=== PATIENT | male | born 1980 | race Caucasian/White ===

== ENCOUNTER 2017-07-26 19:42 | Emergency (ER) | payer OTHER ==
[~2017-07-26] VITALS: Ht 172.7 cm; Wt 150.6 kg
[2017-07-26 20:18] VITALS: Ht 172.7 cm; Wt 150.6 kg
[2017-07-26 22:18] LABS: BASOPHIL # 0.1 10^3/ul (0.0-0.1); BASOPHILS % 0.5 % (0.0-2.0); EOSINOPHILS # 0.4 10^3/ul (0.0-0.5); EOSINOPHILS % 3.6 % (0.0-7.0); HEMATOCRIT 44.4 % (42.0-52.0); HEMOGLOBIN 14.3 g/dl (14.0-18.0); LYMPHOCYTES # 3.4 10^3/ul (0.8-2.9); LYMPHOCYTES % 31.3 % (15.0-51.0); MEAN CORPUSCULAR HEMOGLOBIN 27.8 pg (29.0-33.0); MEAN CORPUSCULAR HGB CONC 32.2 g/dl (32.0-37.0); MEAN CORPUSCULAR VOLUME 86.2 fl (82.0-101.0); MEAN PLATELET VOLUME 10.8 fl (7.4-10.4); MONOCYTE # 0.7 10^3/ul (0.3-0.9); MONOCYTES % 6.3 % (0.0-11.0); NEUTROPHIL # 6.3 10^3/ul (1.6-7.5); PLATELET COUNT 363 10^3/UL (140-415); RED BLOOD COUNT 5.15 10^6/ul (4.70-6.10); RED CELL DISTRIBUTION WIDTH 13.7 % (11.5-14.5); WHITE BLOOD COUNT 10.9 10^3/ul (4.8-10.8)
[2017-07-26 22:54] LABS: ALBUMIN 3.9 g/dl (3.3-4.9); ALBUMIN/GLOBULIN RATIO 0.92; BILIRUBIN,INDIRECT 0.2 mg/dl (0-1.1); BILIRUBIN,TOTAL 0.2 mg/dl (0.2-1.3); CALCIUM 9.1 mg/dl (8.4-10.2); CREATININE 0.8 mg/dl (0.61-1.24); POTASSIUM 3.9 mmol/L (3.5-5.1); TOTAL PROTEIN 8.1 g/dl (6.1-8.1)
--- NOTE | 2017-07-26 23:07 | RADRPT ---
PROCEDURE: CT abdomen and pelvis without intravenous contrast. CLINICAL INDICATION: Pain. TECHNIQUE: CT of the abdomen/pelvis was performed utilizing axial images with reconstructions in s agittal and coronal planes. The administered radiation dose is CTDI 24mGy, DLP 1580 mGy-cm. One or m ore of the following dose reduction techniques were used: automated exposure control, adjustment of the mA and/or kV according to patient size and/or use of iterative reconstruction technique. DICOM images are available. COMPARISON: No pertinent prior examinations were submitted for comparison. FINDINGS: Visualized Chest: A calcified granuloma is noted in the left lower lobe. Abdomen: The spleen, pancreas, gallbladder,and adrenal glands are unremarkable. The liver is markedly, dif fusely decreased in attenuation, compatible with hepatic steatosis. The kidneys are without hydronephrosis. No definite urinary calculi are seen. There is a large ventral abdominal hernia which contains multiple loops of small bowel. There is no abnormal dilatation of the bowel. There is no evidence of bowel obstruction. Prior partial resectio n of the sigmoid colon is also noted. The appendix is not seen. No intra-abdominal free air is seen . There is no evidence of intra-abdominal adenopathy or free fluid. Pelvis: There is no evidence of pelvic adenopathy or free fluid. The prostate and bladder are unremarkable. Small right and moderate left fat containing inguinal hernias are noted. Osseous structures: Unremarkable. IMPRESSION: Large ventral abdominal hernia containing multiple loops of small bowel without evidence of bowel ob struction. Marked hepatic steatosis. Moderate left and small right inguinal hernias containing fat. RPTAT: HIKT .Salvatore Muñiz MD, MD Date Time Electronically viewed and signed by .Salvatore Muñiz MD, on 07/26/2017 23:06 .T/
[2017-07-26] MEDS ORDERED: ONDANSETRON 4 MG INJ IV STA (23:09)
[2017-07-26] MEDS ORDERED: IBUP400T22 PO (23:25)
[2017-07-26] MEDS ORDERED: HYDR-906 PO (23:26)
[2017-07-26] MEDS ORDERED: morphine 10 MG INJ IV ONE (23:30)
--- NOTE | 2017-07-26 23:49 | ERD ---
ER Documentation Chief Complaint Chief Complaint Rt upper abd pain radiating to left quadrant HPI 36 year old male presenting to the ER complains of intermittent mild to severe pain in mid abdomen for one month that worsened last night, patient states pain is very minimal at this moment. Denies nausea, vomiting, diarrhea, constipation. Patient states that last bowel movement was earlier today and normal. He denies fevers. Denies taking any medications for this ROS All systems reviewed and are negative except as per history of present illness. Medications Home Meds Active Scripts Hydrocodone/Acetaminophen (Burkburnett 5-325 Tablet) 1 Each Tablet, 1 TAB PO Q6H Y for PAIN, #20 TAB Prov:SOM VALENCIA PA-C 07/26/17 Ibuprofen* (Ibuprofen*) 400 Mg Tablet, 400 MG PO Q6H Y for PAIN, #30 TAB Prov:SOM VALENCIA PA-C 07/26/17 Allergies Allergies: Coded Allergies: No Known Allergy (Unverified , 07/26/17) PMhx/Soc Medical and Surgical Hx: pt denies Medical Hx History of Surgery: Yes (Appy, intestine remove) Anesthesia Reaction: No Hx Neurological Disorder: No Hx Respiratory Disorders: No Hx Cardiac Disorders: No Hx Psychiatric Problems: No Hx Miscellaneous Medical Probl: No Hx Alcohol Use: Yes (social) Hx Substance Use: Yes (marijuana) Smoking Status: Never smoker Physical Exam Vitals Vital Signs Date Time Temp Pulse Resp B/P Pulse Ox O2 Delivery O2 Flow Rate FiO2 07/26/17 20:18 98.2 98 18 147/85 98 Physical Exam Const: WDWN Head: Atraumatic Eyes: Normal Conjunctiva ENT: Normal External Ears, Nose and Mouth. Neck: Full range of motion..~ No meningismus. Resp: Clear to auscultation bilaterally Cardio: Regular rate and rhythm, no murmurs Abd: Soft, nontender non distended. Normal bowel sounds. large ventral hernia felt Skin: No petechiae or rashes Back: No midline or flank tenderness Ext: No cyanosis, or edema Neur: Awake and alert Psych: Normal Mood and Affect Result Diagram: 07/26/17220907/26/172209 Results 24 hrs Laboratory Tests Test 07/26/17 22:10 White Blood Count 10.910^3/ul Red Blood Count 5.1510^6/ul Hemoglobin 14.3g/dl Hematocrit 44.4% Mean Corpuscular Volume 86.2fl Mean Corpuscular Hemoglobin 27.8pg Mean Corpuscular Hemoglobin Concent 32.2g/dl Red Cell Distribution Width 13.7% Platelet Count 34160^3/UL Mean Platelet Volume 10.8fl Neutrophils % 58.0% Lymphocytes % 31.3% Monocytes % 6.3% Eosinophils % 3.6% Basophils % 0.5% Nucleated Red Blood Cells % 0.0/100WBC Neutrophils # 6.310^3/ul Lymphocytes # 3.410^3/ul Monocytes # 0.710^3/ul Eosinophils # 0.410^3/ul Basophils # 0.110^3/ul Nucleated Red Blood Cells # 0.010^3/ul Sodium Level 143mmol/L Potassium Level 3.9mmol/L Chloride Level 103mmol/L Carbon Dioxide Level 32mmol/L Anion Gap 12 Blood Urea Nitrogen 13mg/dl Creatinine 0.80mg/dl Glucose Level 108mg/dl Calcium Level 9.1mg/dl Total Bilirubin 0.2mg/dl Direct Bilirubin 0.00mg/dl Indirect Bilirubin 0.2mg/dl Aspartate Amino Transf (AST/SGOT) 31IU/L Alanine Aminotransferase (ALT/SGPT) 46IU/L Alkaline Phosphatase 98IU/L Total Protein 8.1g/dl Albumin 3.9g/dl Globulin 4.20g/dl Albumin/Globulin Ratio 0.92 Lipase 83U/L Current Medications Medications (Trade) Dose Ordered Sig/Josephine Route PRN Reason Start Time Stop Time Status Last Admin Dose Admin Morphine Sulfate (morphine) 6 mg ONCE ONCE IV 07/26/17 23:30 07/26/17 23:31 DC 07/26/17 23:27 Ondansetron HCl (Zofran Inj) 4 mg ONCE STAT IV 07/26/17 23:09 07/26/17 23:11 DC 07/26/17 23:27 Procedures/MDM This is a 36-year-old male presenting to the emergency department with a large ventral abdominal hernia without any evidence of incarceration or strangulation. On examination, patient has stable vital signs. He does not seem to be in significant pain. The hernia was able to be reduced. A CT scan of the abdomen and pelvis was done and showed a large ventral abdominal hernia containing multiple loops of small bowel without evidence of bowel obstruction. Lab work was drawn. CBC did not show any evidence of leukocytosis or anemia. CMP did not show any evidence of renal, liver, or electrolyte abnormalities. Lipase was normal. UA did not show any evidence of hemoglobin or urinary tract infection. Patient was given prescription for baclofen and Burkburnett and discussed with him to follow-up with a outpatient surgeon for hernia repair. I have discussed with him the risk for incarceration strangulation, patient expressed agreement and understanding of this plan. CT abd and pelvis without contrast Large ventral abdominal hernia containing multiple loops of small bowel without evidence of bowel obstruction. Marked hepatic steatosis. Moderate left and small right inguinal hernias containing fat. I have consulted my SP who agrees with plan above Departure Diagnosis: Primary Impression: Ventral hernia Condition: Stable Patient Instructions: Hernia (Inguinal, Ventral, Umbilical) Referrals: [facility] YOU HAVE RECEIVED A MEDICAL SCREENING EXAM AND THE RESULTS INDICATE THAT YOU DO NOT HAVE A CONDITION THAT REQUIRES URGENT TREATMENT IN THE EMERGENCY DEPARTMENT. FURTHER EVALUATION AND TREATMENT OF YOUR CONDITION CAN WAIT UNTIL YOU ARE SEEN IN YOUR DOCTORS OFFICE WITHIN THE NEXT 1-2 DAYS. IT IS YOUR RESPONSIBILITY TO MAKE AN APPOINTMENT FOR FOLOW-UP CARE. IF YOU HAVE A PRIMARY DOCTOR --you should call your primary doctor and schedule an appointment IF YOU DO NOT HAVE A PRIMARY DOCTOR YOU CAN CALL OUR PHYSICIAN REFERRAL HOTLINE AT IF YOU CAN NOT AFFORD TO SEE A PHYSICIAN YOU CAN CHOSE FROM THE FOLLOWING [facility] [address] [facility]. [facility] [address] [facility] [address] [facility] [facility] [facility] [address] [facility]. [facility] [address] [facility]. [facility]. [address] Additional Instructions: FOLLOW UP WITH YOUR PRIMARY CARE PHYSICIAN TOMORROW. You will need outpatient surgery. Return to this facility if you are not improving as expected. Take all medicines as directed. You have been given a medicine which may cause drowsiness.DO NOT DRIVE OR OPERATE DANGEROUS MACHINERY while taking this medicine! Return to this facility if you are not improving as expected. SOM VALENCIA PA-C Jul 26, 2017 23:49
[2017-07-27 00:23] VITALS: PULSE 94; RESP 24; TEMP 98.2
== END 2017-07-27 00:05 | disposition home or self-care (01) ==
LOC: FTE 19:42
DX: K43.9 Ventral hernia without obstruction or gangrene (principal)
CPT/HCPCS: 74176; 80053; 83690; 85025; 99285; J2270; J2405